=== PATIENT | male | born 1940 | race Caucasian/White ===

== ENCOUNTER → 2017-05-09 | Outpatient (CLI) | payer OTHER ==
[~2017-05-09] MED LIST: NS 100 ML IV 100 ML IV ONE
[2017-05-09 12:38] LABS: CREATININE 0.81 mg/dL (0.70-1.30)
--- NOTE | 2017-05-09 13:45 | CT ---
HISTORY: Bilateral optic nerve edema. Study: CT brain with and without contrast Comparison: None. Technique: Multiple axial images of the brain were obtained from the skull base to the vertex with and without administration of IV contrast. Dose reduction techniques including Automated Exposure Control (AEC) and adjustment of mA and kV were utilized. Findings: Age related cortical atrophy and chronic small vessel ischemic changes. No acute intraparenchymal he morrhage or mass can be identified. No extra-axial fluid collections are seen. No alteration in th e attenuation of the brain parenchyma can be identified to suggest acute or subacute ischemic change . The ventricular system is symmetric and nondilated. The extracranial structures are grossly unre markable. The visualized orbits and optic nerves appear normal. The visualized vascular structures demonstrate normal contrast enhancement. No areas of pathologic enhancement. IMPRESSION: 1. No acute intracranial process can be identified. Reported By:
--- NOTE | 2017-05-09 14:00 | CT ---
HISTORY: Bilateral optic nerve edema. Study: CT orbits with contrast Comparison: CT head dated same day. Technique: Multiple axial images of orbits after administration of IV contrast. Dose reduction techniques incl uding Automated Exposure Control (AEC) and adjustment of mA and kV were utilized. Findings: The visualized orbits and optic nerves demonstrate normal contrast enhancement. The visualized ocula r muscles appear normal. The visualized vascular structures demonstrate normal contrast enhancement. The visualized intracranial structures appear normal for age. No areas of abnormal contrast enhance ment. The visualized paranasal sinuses and mastoid air cells are clear. The osseous structures are i ntact. IMPRESSION: Unremarkable CT of the orbits. Reported By:
== END | disposition home or self-care (01) ==
LOC: RAD 12:14
PROVIDERS: ATTEND Ophthalmology
DX: H05.223 Edema of bilateral orbit (principal)
CPT/HCPCS: 36415; 70470; 70481; 82565; 84520; A4222

== ENCOUNTER → 2017-05-12 | Outpatient (CLI) | payer OTHER ==
--- NOTE | 2017-05-12 15:05 | CT ---
HISTORY: Bilateral optic nerve edema. Study: CT brain with and without contrast Comparison: CT brain with and without contrast dated May 09, 2017. Technique: Multiple axial images of the brain were obtained from the skull base to the vertex with and without administration of IV contrast. Dose reduction techniques including Automated Exposure Control (AEC) and adjustment of mA and kV were utilized. Findings: Age related cortical atrophy and chronic small vessel ischemic changes. No acute intraparenchymal hemorrhage or mass can be identified. No extra-axial fluid collections are seen. No alteration in the attenuation of the brain parenchyma can be identified to suggest acute or subacute ischemic change. The ventricular system is symmetric and nondilated. The extracranial structures are grossly unremarkable. The visualized orbits and optic nerves appear normal. The visualized vascular structures demonstrate normal contrast enhancement. No areas of pathologic enhancement. IMPRESSION: No acute intracranial process. This is unchanged from the CT head with and without contr ast dated May 09, 2017. Reported By:
== END ==
LOC: RAD 13:10
PROVIDERS: ATTEND Psychiatry & Neurology Neurology
DX: H47.10 Unspecified papilledema (principal); R42 Dizziness and giddiness
CPT/HCPCS: 70496; A4222